=== PATIENT | female | born 1960 | race Caucasian/White ===

== ENCOUNTER 2018-09-12 21:14 | Emergency (ER) | payer BC ==
[2018-09-12 21:28] VITALS: BP 150/93
[2018-09-12] MEDS ORDERED: Gelfoam 12-7 ADSORBABL SPONGE* 1 EA SPONGE ONE (21:38)
[2018-09-12] MEDS ORDERED: Silver Nitrate/Potassium Nitr* 1 EA STICK ONE ×2 (21:38→21:40)
--- NOTE | 2018-09-12 22:12 | ED ---
Skin Complaint - HPI Summary HPI Summary: 58 yo WF p/w left thumb skin growth x 4 weeks, she hit it while dishwashing and now PROFUSELY bleeding. It is on the dorsal surface of her left thumb, pt placed a pressure band-aid on it but as soon as it came off, it did not stop oozing - History of Current Complaint Chief Complaint: UCSkin Time Seen by Provider: 09/12/18 21:20 Stated Complaint: SKIN COMPLAINT Hx Obtained From: Patient Onset/Duration: Started Weeks Ago Onset Severity: Moderate Current Severity: Moderate Pain Intensity: 0 Skin Location: Discrete - Allergy/Home Medications Allergies/Adverse Reactions: Allergies Allergy/AdvReac Type Severity Reaction Status Date / Time No Known Allergies Allergy Verified 09/12/18 21:20 Home Medications: Home Medications Fluticasone-Salmeterol 100-50* [Advair Diskus 100-50*] 1 puff INH BID 09/12/18 [ History Confirmed 09/12/18] Losartan Potassium 25 mg PO DAILY 09/12/18 [History Confirmed 09/12/18] Omeprazole 20 mg PO DAILY 09/12/18 [History Confirmed 09/12/18] Potassium Chlor TAB* [Klor Con ER TAB*] 10 meq PO BID 09/12/18 [History Confirmed 09/12/18] amLODIPine TAB* [Norvasc 5 mg TAB*] 10 mg PO DAILY 09/12/18 [History Confirmed 09/12/18] PMH/Surg Hx/FS Hx/Imm Hx Cardiovascular History: Reports: Hx Hypertension Respiratory History: Reports: Hx Asthma - Surgical History Surgery Procedure, Year, and Place: EYE OPERATION [facility] Infectious Disease History: No Infectious Disease History: Denies: Traveled Outside the [place] in Last 30 Days - Social History Alcohol Use: None Substance Use Type: Reports: None Smoking Status (MU): Never Smoked Tobacco Review of Systems - ROS Summary Review of Systems Summary: Constitutional: Negative Eyes: Negative ENT: Negative Cardiovascular: Negative Respiratory: Negative Gastrointestinal: Negative Genitourinary: Negative Musculoskeletal: Negative Skin: excessive bleeding on left thumb skin lesion Neurological: Negative Psychological: Normal All Other Systems Reviewed And Are Negative: Yes All Other Systems Reviewed And Are Negative: Yes Physical Exam - Summary Physical Exam Summary: Vital Signs Reviewed: Yes Appearance: Positive: No Pain Distress Skin: Positive: left dorsum of thumb partially sheared off 6-7mm pyogenic granuloma, PROFUSELY OOZING BLOOD Head/Face: Positive: Normal Head/Face Inspection Eyes: Positive: Normal ENT: Positive: Normal ENT inspection Neck: Positive: Supple Respiratory/Lung Sounds: Positive: Clear to Auscultation. Negative: Rales, Rhonchi, Wheezes Cardiovascular: Positive: Normal, RRR, S1, S2 Abdomen Description: Positive: Nontender Musculoskeletal: Positive: Normal Neurological: Positive: Normal, CN Intact II-III Psychiatric: Positive: Normal, Affect/Mood Appropriate Vital Signs On Initial Exam: Initial Vitals Temp Pulse Resp BP Pulse Ox 37.1 C 94 18 150/93 95 09/12/18 21:22 09/12/18 21:22 09/12/18 21:22 09/12/18 21:22 09/12/18 21:22 Diagnostics - Vital Signs Vital Signs Temp Pulse Resp BP Pulse Ox 09/12/18 21:22 37.1 C 94 18 150/93 95 - Laboratory Lab Statement: Any lab studies that have been ordered have been reviewed, and results considered in the medical decision making process. Course/Dx - Course Assessment/Plan: Hemostasis could not be achievedwith manual pressure, so silver nitrate used in combination with gelfoam and after a 30minutes, bleeding stopped. Pt to follow up with Derm [facility] for further exploration and excision. - Diagnoses Provider Diagnoses: Pyogenic granuloma Discharge - Sign-Out/Discharge Documenting (check all that apply): Patient Departure All imaging exams completed and their final reports reviewed: No Studies - Discharge Plan Condition: Stable Disposition: HOME Patient Education Materials: Acute Wound Care (ED) Referrals: Ben Maurice MD [Medical Doctor] - Additional Instructions: KEEP IT DRY UNTIL SEEN BY A PELLETIZER - Billing Disposition and Condition Condition: STABLE Disposition: Home
[2018-09-12] MEDS ORDERED: Silver Nitrate/Potassium Nitr* 1 EA STICK TOPICAL ONE (22:21)
[2018-09-12] MEDS ORDERED: Gelfoam 12-7 ADSORBABL SPONGE* 1 EA SPONGE TOPICAL ONE (22:22)
== END 2018-09-12 22:15 | disposition home or self-care (01) ==
LOC: UCEAST 21:14
DX: L98.0 Pyogenic granuloma (principal); I10 Essential (primary) hypertension; J45.909 Unspecified asthma, uncomplicated; Z79.899 Other long term (current) drug therapy
CPT/HCPCS: 99202; A9270-GY; G0463